=== PATIENT | female | born 1980 | race Caucasian/White ===

== ENCOUNTER 2021-05-21 23:04 | Emergency (ER) | payer SELFPAY ==
[~2021-05-21] VITALS: Ht 165.1 cm; Wt 63.5 kg
[2021-05-21 23:15] VITALS: BP 160/97
[2021-05-22] MEDS ORDERED: ACETAMINOPHEN 325 MG TAB PO ONE (05:00)
== END 2021-05-22 05:03 | disposition home or self-care (01) ==
LOC: ER 23:04 → EDBD 23:04 → ER 05-22 05:03
DX: M79.641 Pain in right hand (principal); V49.49XA Driver injured in collision with other motor vehicles in traffic accident, initial encounter; Y93.89 Activity, other specified; Y92.488 Other paved roadways as the place of occurrence of the external cause; Y99.8 Other external cause status
CPT/HCPCS: 73130